=== PATIENT | male | born 1980 | race Asian ===

== ENCOUNTER → 2016-12-06 | Outpatient (CLI) | payer SELFPAY ==
[2016-12-06 08:53] LABS: ADJUSTED CALCIUM 9.8 mg/dL (8.4-10.2); ALBUMIN 3.7 gm/dL (3.5-5.0); BILIRUBIN,TOTAL 0.9 mg/dL (0.0-1.0); CALCIUM 9.6 mg/dL (8.4-10.2); CREATININE, serum 0.79 mg/dL (0.66-1.25); MAGNESIUM 2.3 mg/dL (1.6-2.3); POTASSIUM 4.6 mmol/L (3.4-5.0); TOTAL PROTEIN 8.3 gm/dL (6.4-8.2)
== END ==
LOC: COL.LAB 07:57
DX: E10.9 Type 1 diabetes mellitus without complications (principal); K85.90 Acute pancreatitis without necrosis or infection, unspecified